=== PATIENT | male | born 1935 | race African-American/Black ===

== ENCOUNTER 2019-12-07 21:03 | Emergency (ER) | payer OTHER ==
[~2019-12-07] VITALS: Ht 185.4 cm; Wt 93.0 kg
[2019-12-07 21:15] VITALS: Ht 185.4 cm; Wt 93.0 kg
[2019-12-07 22:34] VITALS: BP 140/75
== END 2019-12-07 22:34 | disposition home or self-care (01) ==
LOC: ED 21:03
DX: R60.9 Edema, unspecified (principal); M25.561 Pain in right knee; M25.562 Pain in left knee; I10 Essential (primary) hypertension
CPT/HCPCS: J1885